=== PATIENT | female | born 1995 | race Asian ===

== ENCOUNTER 2020-09-23 21:30 | Outpatient (CLI) | payer OTHER ==
[~2020-09-23] VITALS: Ht 147.3 cm; Wt 54.3 kg
[2020-09-23 22:00] VITALS: BP 111/65
[2020-09-23 23:02] LABS: BASOPHILS % (AUTO) 1 % (0-1); EOSINOPHILS % (AUTO) 1 % (1-7); LYMPHOCYTES % (AUTO) 19 % (22-44); MEAN CORPUSCULAR HEMOGLOBIN 31.5 pg (27.0-34.8); MEAN CORPUSCULAR HGB CONC 34.2 g/dL (32.4-35.8); MEAN PLATELET VOLUME 7.5 fL (7.4-10.4); MONOCYTES % (AUTO) 6 % (2-9); NEUTROPHILS % (AUTO) 74 % (42-75); PLATELET COUNT 245 x10^3/uL (130-400); RED BLOOD COUNT 4.02 x10^6/uL (3.82-5.3); RED CELL DISTRIBUTION WIDTH 14.2 % (9.6-15.2)
[2020-09-23 23:06] LABS: MICROSCOPIC INDICATED
[2020-09-23 23:08] LABS: ALANINE AMINOTRANSFERASE 18 U/L (12-78); ALBUMIN 2.8 g/dL (3.4-5.0); ANION GAP 9 mmol/L (5-15); C-REACTIVE PROTEIN, QUANT 0.14 mg/dL (0.02-0.49); CALCIUM 8.9 mg/dL (8.5-10.1); CHLORIDE 107 mmol/L (98-107); CREATININE 0.39 mg/dL (0.55-1.02)
[2020-09-23 23:10] LABS: ALKALINE PHOSPHATASE 88 U/L (45-117); BILIRUBIN,TOTAL 0.3 mg/dL (0.2-1.0); TOTAL PROTEIN 6.9 g/dL (6.4-8.2)
== END 2020-09-24 00:55 | disposition home or self-care (01) ==
LOC: ED 21:30 → LDOP 09-24 00:55
PROVIDERS: ATTEND Obstetrics & Gynecology
DX: O26.893 Other specified pregnancy related conditions, third trimester (principal); R10.9 Unspecified abdominal pain; Z3A.30 30 weeks gestation of pregnancy
CPT/HCPCS: 36415; 59025; 80053; 81001; 85025; 86140; 87086

== ENCOUNTER 2020-11-16 01:16 | Outpatient (CLI) | payer OTHER ==
[~2020-11-16] VITALS: Ht 147.3 cm; Wt 57.2 kg
[2020-11-16] MEDS ORDERED: PREN1TAB60 PO (14:21)
[2020-11-16] MEDS ORDERED: vit d 3 PO (14:22)
== END 2020-11-16 04:11 | disposition home or self-care (01) ==
LOC: LDOP 01:16
PROVIDERS: ATTEND Obstetrics & Gynecology
DX: O46.93 Antepartum hemorrhage, unspecified, third trimester (principal); R25.2 Cramp and spasm; Z3A.38 38 weeks gestation of pregnancy
CPT/HCPCS: 59025

== ENCOUNTER 2020-11-16 13:21 | Inpatient (IN) | payer OTHER ==
[~2020-11-16] VITALS: Ht 147.3 cm; Wt 57.2 kg
[2020-11-16] MEDS ORDERED: OXYTOCIN 30U/ 0.9% NaCL 500ML 500 ML ONE (13:33)
[2020-11-16] MEDS ORDERED: MISOPROSTOL 200 MCG TABLET ONE (13:33)
[2020-11-16] MEDS ORDERED: LIDOCAINE 1%, 20ML ONE ×2 (13:33→13:34)
[2020-11-16] MEDS ORDERED: NEWBORN KIT ONE (13:33)
[2020-11-16] MEDS ORDERED: TERBUTALINE 1 MG/ML, 1ML IVPush PRN (14:00)
[2020-11-16] MEDS ORDERED: TERBUTALINE 1 MG/ML, 1ML SQ PRN (14:00)
[2020-11-16] MEDS ORDERED: LACTATED RINGERS 1,000 ML IV SCH ×2 (14:00→15:00)
[2020-11-16] MEDS ORDERED: ONDANSETRON 2MG/ML, 2ML IVPush PRN ×2 (14:00→15:00)
[2020-11-16] MEDS ORDERED: D5%-LACTATED RINGERS 1,000 ML IV SCH (14:00)
[2020-11-16] MEDS ORDERED: PENICILLIN GK 2,500,000 UNITS in DEXTROSE 5% 100 ML IVPB SCH (14:00)
[2020-11-16] MEDS ORDERED: CALCIUM CARBONATE 500 MG TAB.CHEW PO PRN (14:00)
[2020-11-16] MEDS ORDERED: OXYTOCIN 30U/ 0.9% NaCL 500ML 500 ML IV ONE (14:00)
[2020-11-16] MEDS ORDERED: FENTANYL PF 100 MCG/2ML IVPush PRN (14:00)
[2020-11-16] MEDS ORDERED: FENTANYL PF 100 MCG/2ML IV PRN (14:00)
[2020-11-16] MEDS ORDERED: PENICILLIN GK 5,000,000 UNITS in DEXTROSE 5% 100 ML IVPB ONE ×2 (14:00→20:00)
[2020-11-16 14:08] VITALS: BP 110/55
[2020-11-16] MEDS ORDERED: PREN1TAB60 PO (14:21)
[2020-11-16] MEDS ORDERED: vit d 3 PO (14:22)
[2020-11-16 14:40] LABS: BASOPHILS % (AUTO) 1 % (0-1); EOSINOPHILS % (AUTO) 1 % (1-7); LYMPHOCYTES % (AUTO) 15 % (22-44); MEAN CORPUSCULAR HEMOGLOBIN 31.6 pg (27.0-34.8); MEAN CORPUSCULAR HGB CONC 33.9 g/dL (32.4-35.8); MEAN PLATELET VOLUME 8.2 fL (7.4-10.4); MONOCYTES % (AUTO) 7 % (2-9); NEUTROPHILS % (AUTO) 77 % (42-75); PLATELET COUNT 237 x10^3/uL (130-400)
[2020-11-16] MEDS ORDERED: BUPIVACAINE 0.25% ONE (14:58)
[2020-11-16] MEDS ORDERED: FENTANYL/BUPIV./NS/PF 250 ML EPIDCONT ONE (14:58)
[2020-11-16] MEDS ORDERED: EPHEDRINE 50 MG/ML, 1ML IVPush PRN (15:00)
[2020-11-16] MEDS ORDERED: LACTATED RINGERS 1,000 ML IVBOLUS PRN (15:00)
[2020-11-16] MEDS ORDERED: DIPHENHYDRAMINE 50 MG/ML, 1ML IVPush PRN (15:00)
[2020-11-16] MEDS ORDERED: NALOXONE 0.4 MG/ML, 1ML IVPush PRN (15:00)
[2020-11-16] MEDS ORDERED: FENTANYL/BUPIV./NS/PF 250 ML EPIDCONT SCH (15:00)
[2020-11-16] MEDS: PENICILLIN GK 2,500,000 UNITS in DEXTROSE 5% 100 ML IV SCH ×2 (17:55→22:35)
[2020-11-17] MEDS ORDERED: SIMETHICONE 80 MG CHEW TAB PO PRN (01:30)
[2020-11-17] MEDS ORDERED: OXYcodone/APAP 5/325MG TABLET PO PRN (01:30)
[2020-11-17] MEDS ORDERED: METHYLERGONOVINE 0.2 MG/ML IM PRN (01:30)
[2020-11-17] MEDS: OXYTOCIN 30U/ 0.9% NaCL 500ML 500 ML IV SCH ×2 (01:30→11:30)
[2020-11-17] MEDS ORDERED: CARBOPROST TROMETHAMINE 250 MCG/ML, 1ML IM PRN (01:30)
[2020-11-17] MEDS ORDERED: METOCLOPRAMIDE 5 MG/ML, 2ML IV PRN (01:30)
[2020-11-17] MEDS ORDERED: OXYcodone IR 5MG TABLET PO PRN (01:30)
[2020-11-17] MEDS ORDERED: MISOPROSTOL 200 MCG TABLET PO PRN (01:30)
[2020-11-17] MEDS ORDERED: BISACODYL 10 MG SUPP PR PRN (01:30)
[2020-11-17] MEDS ORDERED: ONDANSETRON 2MG/ML, 2ML IV PRN (01:30)
[2020-11-17] MEDS ORDERED: GLYCERIN ADULT SUPP PR PRN (01:30)
[2020-11-17] MEDS: DOCUSATE 100 MG CAPSULE PO PRN ×2 (08:14→20:32)
[2020-11-17] MEDS: IBUPROFEN 600 MG TABLET PO PRN ×3 (08:14→20:32)
[2020-11-17] MEDS: ACETAMINOPHEN 325 MG TABLET PO PRN ×2 (08:14→14:54)
[2020-11-17 08:25] VITALS: BP 97/62
[2020-11-17] MEDS: PRENATAL VIT/IRON/FA 1 EACH TABLET PO SCH (08:28)
[2020-11-17 09:46] LABS: MEAN CORPUSCULAR HEMOGLOBIN 31.5 pg (27.0-34.8); MEAN PLATELET VOLUME 8.1 fL (7.4-10.4); PLATELET COUNT 205 x10^3/uL (130-400); RED BLOOD COUNT 3.67 x10^6/uL (3.82-5.3); RED CELL DISTRIBUTION WIDTH 14.1 % (9.6-15.2)
[2020-11-17 10:08] LABS: <PLATELET ESTIMATE> ADEQUATE; <PLT MORPHOLOGY> NORMAL PLT MORPH; <RBC MORPHOLOGY> NORMAL; BAND#(MANUAL) 1.69 x10^3/uL; BANDS%(MANUAL) 11 % (0-7); LYMPH#(MANUAL) 1.85 x10^3/uL (1-3.4); LYMPHS% (MANUAL) 12 % (22-44); MONOS#(MANUAL) 0.46 x10^3/uL (0.3-2.7); MONOS% (MANUAL) 3 % (2-9); SEGS% (MANUAL) 74 % (42-75)
[2020-11-17 12:15] VITALS: BP 105/71
[2020-11-17 16:10] VITALS: BP 94/61
[2020-11-17 19:25] VITALS: BP 101/65
[2020-11-18 00:10] VITALS: BP 100/65
[2020-11-18] MEDS: IBUPROFEN 600 MG TABLET PO PRN (06:12)
[2020-11-18] MEDS: PRENATAL VIT/IRON/FA 1 EACH TABLET PO SCH (09:00)
[2020-11-18 10:45] VITALS: BP 103/59
[2020-11-18] MEDS: DOCUSATE 100 MG CAPSULE PO PRN (11:33)
[2020-11-18] MEDS ORDERED: DOCU-131 PO (12:34)
[2020-11-18] MEDS ORDERED: IBUP-1222 PO (12:35)
== END 2020-11-18 17:40 | disposition home or self-care (01) | DRG 806 ==
LOC: LDOP 13:21 → LDIP 13:36 → 2NW 11-17 03:10
PROVIDERS: ADMIT Obstetrics & Gynecology; ATTEND Obstetrics & Gynecology
PROC: 10E0XZZ Delivery of Products of Conception, External Approach (ICD-10-PCS; principal; 2020-11-17)
PROC: 0KQM0ZZ Repair Perineum Muscle, Open Approach (ICD-10-PCS; 2020-11-17)
PROC: 3E0R3BZ Introduction of Anesthetic Agent into Spinal Canal, Percutaneous Approach (ICD-10-PCS; 2020-11-17)
PROC: 00HU33Z Insertion of Infusion Device into Spinal Canal, Percutaneous Approach (ICD-10-PCS; 2020-11-17)
DX: O99.824 Streptococcus B carrier state complicating childbirth (principal); D62 Acute posthemorrhagic anemia; Z37.0 Single live birth; O70.1 Second degree perineal laceration during delivery; Z3A.38 38 weeks gestation of pregnancy; Z83.3 Family history of diabetes mellitus; Z20.822 Contact with and (suspected) exposure to COVID-19; Z91.040 Latex allergy status; Z91.048 Other nonmedicinal substance allergy status; O90.81 Anemia of the puerperium
CPT/HCPCS: 36415; 85025; 86592; 86850; 86900; 87635; G0378; J2540; J7120